=== PATIENT | male | born 1960 | race Caucasian/White ===

== ENCOUNTER 2024-05-13 17:08 | Inpatient (IN) | payer MEDICAID ==
[~2024-05-13] VITALS: Ht 180.3 cm; Wt 81.6 kg
[~2024-05-13 17:08] MED LIST: BUPR-565 PO; QUET300T2 PO
[2024-05-14] MEDS ORDERED: LORazepam 2 MG TABLET PO PRN (10:15)
[2024-05-14] MEDS ORDERED: ZOLPIDEM TARTRATE 10 MG TABLET PO PRN (10:15)
[2024-05-14] MEDS ORDERED: HALOPERIDOL 5 MG TABLET PO PRN (10:15)
[2024-05-14] MEDS ORDERED: GuaiFENesin SR 600 MG ER TABLET PO SCH (14:45)
[2024-05-14] MEDS ORDERED: BENZONATATE 100 MG CAPSULE PO SCH (14:45)
[2024-05-14] MEDS ORDERED: CARBIDOPA/LEVODOPA 25-100 MG TABLET PO SCH (16:00)
[2024-05-14] MEDS: PREGABALIN 75 MG CAPSULE PO SCH (16:33)
[2024-05-14] MEDS ORDERED: IPRATROPIUM BROMIDE 0.5 MG/2.5 ML NEB SOLUTION NEB SCH (20:00)
[2024-05-15] MEDS ORDERED: PANTOPRAZOLE SODIUM 40 MG DR TABLET PO SCH (09:00)
[2024-05-15] MEDS ORDERED: PredniSONE 20 MG TABLET PO SCH (09:00)
[2024-05-21] MEDS ORDERED: PredniSONE 20 MG TABLET PO SCH (09:00)
== END 2024-05-14 16:35 | disposition left against medical advice (07) | DRG 750 ==
LOC: UNDOADMIN 05-14 16:06 → 3EI 05-14 16:06
PROVIDERS: ADMIT Psychiatry & Neurology Child & Adolescent Psychiatry; ATTEND Psychiatry & Neurology Child & Adolescent Psychiatry
DX: F25.1 Schizoaffective disorder, depressive type (principal); Z20.822 Contact with and (suspected) exposure to COVID-19; Z53.29 Procedure and treatment not carried out because of patient's decision for other reasons
CPT/HCPCS: Z7610

== ENCOUNTER 2024-05-24 15:53 | Emergency (ER) | payer MEDICAID, OTHER ==
[~2024-05-24] VITALS: Ht 180.3 cm; Wt 70.0 kg
[2024-05-24 16:12] VITALS: TEMP 97.9
[2024-05-24] MEDS: MethylPREDNISolone SOD SUCC 125 MG/2 ML VIAL IVP ONE (16:21)
[2024-05-24 17:15] VITALS: PULSE 75; RESP 18; O2SAT 95; O2SAT 96
[2024-05-24] MEDS: IPRATROPIUM BROMIDE 0.5 MG/2.5 ML NEB SOLUTION NEB ONE (17:23)
[2024-05-24] MEDS: ALBUTEROL SULFATE 2.5 MG/0.5 ML 5 ML NEB SOLUTION NEB ONE (17:23)
[2024-05-24 17:37] LABS: BASOPHILS % (AUTO) 0.7 % (0.0-2.0); EOSINOPHILS % (AUTO) 5.8 % (1.0-6.0); HEMATOCRIT 39.8 % (41-53); LYMPHOCYTES # (AUTO) 1.6 K/uL (1.0-4.8); LYMPHOCYTES % (AUTO) 22.5 % (22.0-44.0); MEAN CORPUSCULAR HEMOGLOBIN 27.9 pg (26.0-34.0); MEAN CORPUSCULAR HGB CONC 32.7 G/dL (31.0-37.0); MEAN CORPUSCULAR VOLUME 85 fL (80-100); MONOCYTES # (AUTO) 1.2 K/uL (0.1-1.0); MONOCYTES % (AUTO) 16.3 % (2.0-9.0); NEUTROPHILS % (AUTO) 54.7 % (40.0-70.0); PLATELET COUNT (AUTO) 174 K/uL (150-450); RED BLOOD CELL COUNT(AUTO) 4.66 MIL/uL (4.50-5.90); RED CELL DISTRIBUTION WIDTH 16.5 % (11.5-14.5); WHITE BLOOD COUNT (AUTO) 7.3 K/uL (4.5-11.0)
[2024-05-24 17:40] VITALS: BP 121/60; PULSE 80; RESP 24
[2024-05-24 17:42] LABS: ANION GAP 7 mmol/L (8-16); CALCIUM, TOTAL 8.8 mg/dL (8.8-10.5); CARBON DIOXIDE 27 mmol/L (22-29); CHLORIDE 103 mmol/L (98-107); CREATININE 0.86 mg/dL (0.60-1.30); GLOMERULAR FILTR. RATE CALC > 60 mL/min (>60); GLUCOSE,RANDOM 81 mg/dL (70-110); POTASSIUM 3.4 mmol/L (3.5-5.1); SODIUM SERUM 137 mmol/L (136-145); UREA NITROGEN, BLOOD 8 mg/dL (7-18)
[2024-05-24 17:49] LABS: B-TYPE NATRIURETIC PEPTIDE 19 pg/mL (0-100)
[2024-05-24 17:51] LABS: TROPONIN I-HIGH SENSITIVITY 24 ng/L (<76)
[2024-05-24] MEDS: MAG HYDROX/ALUMINUM HYD/SIMETH ES 30 ML SUSPENSION UDCUP PO ONE (18:50)
[2024-05-24] MEDS: OMEPRAZOLE 20 MG CAPSULE PO ONE (18:50)
[2024-05-24] MEDS ORDERED: PRED-554 PO (18:55)
[2024-05-24] MEDS ORDERED: OMEP20 PO (18:55)
== END 2024-05-24 20:30 | disposition home or self-care (01) ==
LOC: EMS 15:54
DX: J44.9 Chronic obstructive pulmonary disease, unspecified (principal); K21.9 Gastro-esophageal reflux disease without esophagitis; F31.9 Bipolar disorder, unspecified; I10 Essential (primary) hypertension; F20.9 Schizophrenia, unspecified; F17.210 Nicotine dependence, cigarettes, uncomplicated; F12.90 Cannabis use, unspecified, uncomplicated; Z90.49 Acquired absence of other specified parts of digestive tract; Z98.890 Other specified postprocedural states; Z88.8 Allergy status to other drugs, medicaments and biological substances
CPT/HCPCS: 99285; 96374; 71045; 80048; 83880; 84484; 85025; 36415; 94644; 93005; J2919; Q9967; 94640

== ENCOUNTER 2024-05-27 19:32 | Emergency (ER) | payer OTHER ==
[~2024-05-27] VITALS: Ht 175.3 cm; Wt 90.0 kg
[2024-05-27 19:15] VITALS: PULSE 94; RESP 20; O2SAT 99
[~2024-05-27 19:32] MED LIST changes: -BUPR-565 PO; +OMEP20 PO; +PRED-554 PO; -QUET300T2 PO
[2024-05-27 19:35] VITALS: TEMP 98.4
[2024-05-27] MEDS: ALBUTEROL SULFATE 2.5 MG/0.5 ML NEB SOLUTION NEB ONE (19:57)
[2024-05-27] MEDS: IPRATROPIUM BROMIDE 0.5 MG/2.5 ML NEB SOLUTION NEB ONE (19:57)
[2024-05-27 19:58] VITALS: PULSE 93; RESP 22; O2SAT 96
[2024-05-27 19:59] VITALS: PULSE 93; RESP 22; O2SAT 96
[2024-05-27] MEDS: MethylPREDNISolone SOD SUCC 125 MG/2 ML VIAL IVP ONE (20:53)
[2024-05-27 20:55] LABS: BASOPHILS % (AUTO) 0.8 % (0.0-2.0); EOSINOPHILS % (AUTO) 5.6 % (1.0-6.0); HEMATOCRIT 38.7 % (41-53); HEMOGLOBIN 12.8 g/dL (13.5-17.5); LYMPHOCYTES # (AUTO) 1.7 K/uL (1.0-4.8); MEAN CORPUSCULAR HEMOGLOBIN 28.4 pg (26.0-34.0); MEAN CORPUSCULAR HGB CONC 33.1 G/dL (31.0-37.0); MEAN CORPUSCULAR VOLUME 86 fL (80-100); MONOCYTES % (AUTO) 15.2 % (2.0-9.0); NEUTROPHILS # (AUTO) 3.3 K/uL (1.8-7.7); NEUTROPHILS % (AUTO) 51.4 % (40.0-70.0); PLATELET COUNT (AUTO) 162 K/uL (150-450); RED BLOOD CELL COUNT(AUTO) 4.51 MIL/uL (4.50-5.90); RED CELL DISTRIBUTION WIDTH 16.9 % (11.5-14.5); WHITE BLOOD COUNT (AUTO) 6.3 K/uL (4.5-11.0)
[2024-05-27 21:04] LABS: ANION GAP 11 mmol/L (8-16); CALCIUM, TOTAL 8.4 mg/dL (8.8-10.5); CARBON DIOXIDE 25 mmol/L (22-29); CHLORIDE 101 mmol/L (98-107); CREATININE 0.79 mg/dL (0.60-1.30); GLOMERULAR FILTR. RATE CALC > 60 mL/min (>60); GLUCOSE,RANDOM 112 mg/dL (70-110); POTASSIUM 3.8 mmol/L (3.5-5.1); SODIUM SERUM 136 mmol/L (136-145); UREA NITROGEN, BLOOD 8 mg/dL (7-18)
[2024-05-27 21:10] LABS: APPEARANCE,URINE CLEAR (CLEAR); BILIRUBIN,URINE NEGATIVE (NEGATIVE); COLOR,URINE COLORLESS (YELLOW); GLUCOSE, URINE (UA) NEGATIVE (NEGATIVE); KETONES,URINE NEGATIVE (NEGATIVE); LEUKOCYTE ESTERASE ,URINE NEGATIVE (NEGATIVE); NITRATE,URINE NEGATIVE (NEGATIVE); OCCULT BLOOD,URINE NEGATIVE (NEGATIVE); PH,URINE 5.5 (5.0-8.0); PROTEIN,URINE NEGATIVE (NEGATIVE); SPECIFIC GRAVITIY, URINE 1.005 (1.003-1.030); UROBILINOGEN,URINE <=1.0 mg/dL (<=1.0)
[2024-05-27 21:12] LABS: ALANINE AMINOTRANSFERASE 27 U/L (12-78); ALBUMIN 2.9 g/dL (3.4-5.0); ALKALINE PHOSPHATASE 99 U/L (46-116); ASPARTATE AMINOTRANSFERASE 21 U/L (15-37); BILIRUBIN,TOTAL 0.2 mg/dL (0.1-1.0); CREATINE KINASE, TOTAL ONLY 35 U/L (39-308); TOTAL PROTEIN, SERUM 6.5 g/dL (6.4-8.2)
[2024-05-27 21:13] LABS: B-TYPE NATRIURETIC PEPTIDE 16 pg/mL (0-100); TROPONIN I-HIGH SENSITIVITY 27 ng/L (<76)
[2024-05-27] MEDS: HYDROCODONE/ACETAMINOPHEN 5-325 MG TABLET PO ONE (21:21)
[2024-05-27] MEDS: AZITHROMYCIN 500 MG/NS 250 ML IV ONE (21:53)
[2024-05-27] MEDS: CefTRIAXone 1 GM/DEXTROSE 50 ML IV ONE (21:55)
[2024-05-27 22:27] LABS: LACTIC ACID 1.6 mmol/L (0.4-2.0)
[2024-05-27] MEDS ORDERED: ALBU18HF12 IH (22:38)
[2024-05-27] MEDS ORDERED: AZIT250T9 PO (22:38)
[2024-05-27] MEDS ORDERED: PRED-554 PO (22:38)
[2024-05-27 23:27] VITALS: BP 117/81; PULSE 88; RESP 15
== END 2024-05-27 23:54 | disposition home or self-care (01) ==
LOC: EMS 19:32
DX: J44.1 Chronic obstructive pulmonary disease with (acute) exacerbation (principal); J18.9 Pneumonia, unspecified organism; R06.02 Shortness of breath; I10 Essential (primary) hypertension; Z88.8 Allergy status to other drugs, medicaments and biological substances
CPT/HCPCS: 99285; 96365; 71045; 96375; 80053; 81003; 82550; 83605; 84484; 85025; 85379; 87040; 94640; 93005; 96368; 36415; J0456; J0696; J2919; J7613

== ENCOUNTER 2024-06-09 14:36 | Emergency (ER) | payer OTHER ==
[~2024-06-09] VITALS: Ht 180.3 cm; Wt 70.0 kg
[~2024-06-09 14:36] MED LIST changes: +ALBU18HF12 IH
[2024-06-09 14:54] VITALS: BP 105/43; TEMP 98.1
[2024-06-09 14:55] VITALS: PULSE 83; RESP 20; O2SAT 92
[2024-06-09] MEDS ORDERED: PROP10TA72 PO (14:58)
[2024-06-09] MEDS ORDERED: BUDE10.22 IH (14:58)
[2024-06-09] MEDS ORDERED: OMEP20CA12 PO (14:58)
[2024-06-09] MEDS ORDERED: GABA-1181 PO (14:58)
[2024-06-09] MEDS ORDERED: DOCU-412 PO (14:58)
[2024-06-09] MEDS ORDERED: PALI156D IM (14:58)
[2024-06-09 15:10] VITALS: PULSE 86; RESP 20; O2SAT 96
[2024-06-09] MEDS: ALBUTEROL SULFATE 2.5 MG/0.5 ML NEB SOLUTION NEB ONE (15:24)
[2024-06-09] MEDS: IPRATROPIUM BROMIDE 0.5 MG/2.5 ML NEB SOLUTION NEB ONE (15:25)
[2024-06-09] MEDS: KETOROLAC TROMETHAMINE 30 MG/ML VIAL IVP ONE (15:37)
[2024-06-09] MEDS: MethylPREDNISolone SOD SUCC 125 MG/2 ML VIAL IVP ONE (15:37)
[2024-06-09] MEDS: ACETAMINOPHEN 500 MG TABLET PO ONE (15:38)
[2024-06-09 15:43] LABS: BASOPHILS % (AUTO) 1.2 % (0.0-2.0); EOSINOPHILS % (AUTO) 6.1 % (1.0-6.0); HEMATOCRIT 39.7 % (41-53); HEMOGLOBIN 13.1 g/dL (13.5-17.5); LYMPHOCYTES # (AUTO) 1.9 K/uL (1.0-4.8); LYMPHOCYTES % (AUTO) 26.6 % (22.0-44.0); MEAN CORPUSCULAR HEMOGLOBIN 28.3 pg (26.0-34.0); MEAN CORPUSCULAR HGB CONC 32.9 G/dL (31.0-37.0); MEAN CORPUSCULAR VOLUME 86 fL (80-100); MONOCYTES # (AUTO) 1.2 K/uL (0.1-1.0); MONOCYTES % (AUTO) 16.5 % (2.0-9.0); NEUTROPHILS # (AUTO) 3.5 K/uL (1.8-7.7); NEUTROPHILS % (AUTO) 49.6 % (40.0-70.0); PLATELET COUNT (AUTO) 229 K/uL (150-450); RED BLOOD CELL COUNT(AUTO) 4.62 MIL/uL (4.50-5.90); RED CELL DISTRIBUTION WIDTH 17.1 % (11.5-14.5); WHITE BLOOD COUNT (AUTO) 7.1 K/uL (4.5-11.0)
[2024-06-09 15:51] LABS: ANION GAP 9 mmol/L (8-16); CALCIUM, TOTAL 8.6 mg/dL (8.8-10.5); CARBON DIOXIDE 27 mmol/L (22-29); CHLORIDE 102 mmol/L (98-107); CREATININE 0.97 mg/dL (0.60-1.30); GLOMERULAR FILTR. RATE CALC > 60 mL/min (>60); GLUCOSE,RANDOM 72 mg/dL (70-110); POTASSIUM 3.8 mmol/L (3.5-5.1); SODIUM SERUM 138 mmol/L (136-145); UREA NITROGEN, BLOOD 7 mg/dL (7-18)
[2024-06-09 15:55] LABS: ALANINE AMINOTRANSFERASE 22 U/L (12-78); ALBUMIN 3.2 g/dL (3.4-5.0); ALKALINE PHOSPHATASE 95 U/L (46-116); ASPARTATE AMINOTRANSFERASE 15 U/L (15-37); BILIRUBIN,TOTAL 0.4 mg/dL (0.1-1.0); CREATINE KINASE, TOTAL ONLY 29 U/L (39-308)
[2024-06-09 15:56] LABS: COVID AG,FIA SOURCE NASAL SWAB
[2024-06-09 15:57] LABS: TROPONIN I-HIGH SENSITIVITY 30 ng/L (<76)
[2024-06-09 15:59] LABS: B-TYPE NATRIURETIC PEPTIDE 12 pg/mL (0-100)
[2024-06-09 16:22] LABS: INFLUENZA TYPE A NEGATIVE FOR TYPE A (NEGATIVE); INFLUENZA TYPE B NEGATIVE FOR TYPE B (NEGATIVE)
[2024-06-09 16:24] LABS: SARS-COV2 (COVID) ANTIGEN,FIA Negative (Negative)
[2024-06-09 16:55] LABS: APPEARANCE,URINE CLEAR (CLEAR); BILIRUBIN,URINE NEGATIVE (NEGATIVE); COLOR,URINE COLORLESS (YELLOW); GLUCOSE, URINE (UA) NEGATIVE (NEGATIVE); KETONES,URINE NEGATIVE (NEGATIVE); LEUKOCYTE ESTERASE ,URINE NEGATIVE (NEGATIVE); NITRATE,URINE NEGATIVE (NEGATIVE); OCCULT BLOOD,URINE NEGATIVE (NEGATIVE); PROTEIN,URINE NEGATIVE (NEGATIVE); SPECIFIC GRAVITIY, URINE 1.005 (1.003-1.030); UROBILINOGEN,URINE <=1.0 mg/dL (<=1.0)
[2024-06-09] MEDS ORDERED: PRED-554 PO (17:05)
== END 2024-06-09 17:39 | disposition home or self-care (01) ==
LOC: EMS 14:37
DX: J44.1 Chronic obstructive pulmonary disease with (acute) exacerbation (principal); R05.9 Cough, unspecified; R06.02 Shortness of breath; I10 Essential (primary) hypertension; F17.210 Nicotine dependence, cigarettes, uncomplicated; F12.90 Cannabis use, unspecified, uncomplicated; Z88.8 Allergy status to other drugs, medicaments and biological substances; Z20.822 Contact with and (suspected) exposure to COVID-19
CPT/HCPCS: 99285; 96374; 71045; 96375; 87426; 80053; 81003; 82550; 83880; 84484; 85025; 87804; 36415; 94640; 93005; J1885; J2919; J7613

== ENCOUNTER 2024-06-16 12:27 | Inpatient (IN) | payer MEDICAID, OTHER ==
[~2024-06-16] VITALS: Ht 180.3 cm; Wt 73.9 kg
[~2024-06-16 12:27] MED LIST changes: +BUDE10.22 IH; +DOCU-412 PO; +GABA-1181 PO; +PALI156D IM; +PROP10TA72 PO
[2024-06-16] MEDS: ZIPRASIDONE MESYLATE 20 MG/VIAL IM ONE (13:24)
[2024-06-16] MEDS: LORazepam 2 MG/ML VIAL IM ONE (13:24)
[2024-06-16] MEDS: DiphenhydrAMINE HCL 50 MG/ML VIAL IM ONE (13:24)
[2024-06-16 14:00] LABS: BASOPHILS % (AUTO) 0.2 % (0.0-2.0); EOSINOPHILS % (AUTO) 0 % (1.0-6.0); HEMATOCRIT 37.2 % (41-53); HEMOGLOBIN 12.3 g/dL (13.5-17.5); LYMPHOCYTES # (AUTO) 1.6 K/uL (1.0-4.8); LYMPHOCYTES % (AUTO) 21.8 % (22.0-44.0); MEAN CORPUSCULAR HEMOGLOBIN 28.1 pg (26.0-34.0); MEAN CORPUSCULAR VOLUME 85 fL (80-100); MONOCYTES # (AUTO) 0.9 K/uL (0.1-1.0); MONOCYTES % (AUTO) 12.6 % (2.0-9.0); NEUTROPHILS # (AUTO) 4.8 K/uL (1.8-7.7); NEUTROPHILS % (AUTO) 65.4 % (40.0-70.0); PLATELET COUNT (AUTO) 230 K/uL (150-450); RED BLOOD CELL COUNT(AUTO) 4.36 MIL/uL (4.50-5.90); RED CELL DISTRIBUTION WIDTH 17.2 % (11.5-14.5); WHITE BLOOD COUNT (AUTO) 7.3 K/uL (4.5-11.0)
[2024-06-16 14:10] LABS: APPEARANCE,URINE CLEAR (CLEAR); BILIRUBIN,URINE NEGATIVE (NEGATIVE); COLOR,URINE COLORLESS (YELLOW); GLUCOSE, URINE (UA) NEGATIVE (NEGATIVE); KETONES,URINE NEGATIVE (NEGATIVE); LEUKOCYTE ESTERASE ,URINE NEGATIVE (NEGATIVE); NITRATE,URINE NEGATIVE (NEGATIVE); OCCULT BLOOD,URINE NEGATIVE (NEGATIVE); PH,URINE 5.5 (5.0-8.0); PROTEIN,URINE NEGATIVE (NEGATIVE); SPECIFIC GRAVITIY, URINE 1.006 (1.003-1.030); UROBILINOGEN,URINE <=1.0 mg/dL (<=1.0)
[2024-06-16 14:10] LABS: ALCOHOL, BLOOD (SERUM) 193 mg/dL (0-10)
[2024-06-16 14:13] LABS: ANION GAP 10 mmol/L (8-16); CALCIUM, TOTAL 8.2 mg/dL (8.8-10.5); CARBON DIOXIDE 28 mmol/L (22-29); CHLORIDE 98 mmol/L (98-107); CREATININE 0.78 mg/dL (0.60-1.30); GLOMERULAR FILTR. RATE CALC > 60 mL/min (>60); GLUCOSE,RANDOM 90 mg/dL (70-110); POTASSIUM 3.7 mmol/L (3.5-5.1); SODIUM SERUM 136 mmol/L (136-145); UREA NITROGEN, BLOOD 11 mg/dL (7-18)
[2024-06-16 14:16] LABS: ALCOHOL, URINE DRUG SCREEN POSITIVE (NEGATIVE); AMPHET/METH SCREEN,URINE NEGATIVE (NEGATIVE); BARBITURATE SCREEN, URINE NEGATIVE (NEGATIVE); BENZODIAZEPINES SCREEN,URINE NEGATIVE (NEGATIVE); CANNABINOID SCREEN,URINE NEGATIVE (NEGATIVE); COCAINE SCREEN,URINE NEGATIVE (NEGATIVE); METHADONE SCREEN, URINE NEGATIVE (NEGATIVE); OPIATE SCREEN,URINE NEGATIVE (NEGATIVE); PHENCYCLIDINE SCREEN,URINE NEGATIVE (NEGATIVE)
[2024-06-16 14:17] LABS: PH,URINE DRUG SCREEN 5.5 (5.0-8.0)
[2024-06-16 14:19] LABS: ALANINE AMINOTRANSFERASE 26 U/L (12-78); ALKALINE PHOSPHATASE 91 U/L (46-116); ASPARTATE AMINOTRANSFERASE 20 U/L (15-37); BILIRUBIN,TOTAL 0.4 mg/dL (0.1-1.0); TOTAL PROTEIN, SERUM 6.5 g/dL (6.4-8.2)
[2024-06-16 16:39] LABS: COVID AG,FIA SOURCE NASAL SWAB
[2024-06-16 17:02] LABS: SARS-COV2 (COVID) ANTIGEN,FIA Negative (Negative)
[2024-06-16] MEDS: IPRATROPIUM BROMIDE 0.5 MG/2.5 ML NEB SOLUTION NEB ONE (18:27)
[2024-06-16] MEDS: ALBUTEROL SULFATE 2.5 MG/0.5 ML NEB SOLUTION NEB ONE (18:27)
[2024-06-16 18:33] VITALS: PULSE 88; RESP 18; O2SAT 96
[2024-06-16 18:34] VITALS: PULSE 88; RESP 18; O2SAT 96
[2024-06-17 04:59] VITALS: BP 153/78; PULSE 100; RESP 20; TEMP 97.6; O2SAT 92
[2024-06-17] MEDS ORDERED: BENZOCAINE/MENTHOL LOZENGE PO PRN (07:00)
[2024-06-17] MEDS ORDERED: PETROLATUM,WHITE 28 GM JELLY TP PRN (07:00)
[2024-06-17] MEDS ORDERED: ONDANSETRON HCL 4 MG TABLET PO PRN (07:00)
[2024-06-17] MEDS ORDERED: MAGNESIUM HYDROXIDE SUSPENSION 30 ML UDCUP PO PRN (07:00)
[2024-06-17] MEDS ORDERED: OMEPRAZOLE 20 MG CAPSULE PO PRN (07:00)
[2024-06-17] MEDS ORDERED: DOCUSATE SODIUM 100 MG CAPSULE PO PRN (07:00)
[2024-06-17] MEDS ORDERED: ACETAMINOPHEN 325 MG TABLET PO PRN (07:00)
[2024-06-17] MEDS ORDERED: CloNIDine HCL 0.1 MG TABLET PO PRN (07:00)
[2024-06-17] MEDS ORDERED: IBUPROFEN 600 MG TABLET PO PRN (07:00)
[2024-06-17] MEDS ORDERED: BACITRACIN 28 GM OINTMENT TP PRN (07:00)
[2024-06-17] MEDS ORDERED: MAG HYDROX/ALUMINUM HYD/SIMETH ES 30 ML SUSPENSION UDCUP PO PRN (07:00)
[2024-06-17] MEDS ORDERED: LOPERAMIDE HCL 2 MG CAPSULE PO PRN (07:00)
[2024-06-17] MEDS: ALBUTEROL SULFATE HFA 90 MCG/PUFF 8 GM INHALER IH PRN (07:06)
[2024-06-17 08:45] VITALS: BP 128/83; PULSE 107; RESP 16
[2024-06-17] MEDS: PROPRANOLOL HCL 10 MG TABLET PO SCH (08:54)
[2024-06-17] MEDS: BUDESONIDE/FORMOTEROL FUMARATE 80-4.5 MCG/PUFF 10.2 GM INHALER IH SCH (08:54)
[2024-06-17] MEDS: GABAPENTIN 300 MG CAPSULE PO SCH (08:54)
[2024-06-17] MEDS: PALIPERIDONE PALMITATE 234 MG/1.5 ML SYRINGE IM ONE (13:13)
[2024-06-17] MEDS: BuPROPion HCL 150 MG SR TABLET PO SCH (16:26)
[2024-06-17] MEDS: QUEtiapine FUMARATE 300 MG TABLET PO SCH (21:04)
[2024-06-17 21:33] VITALS: BP 108/72; PULSE 84; RESP 18; TEMP 98.7; O2SAT 95
[2024-06-17 21:35] VITALS: BP 108/72; PULSE 84; RESP 18; TEMP 98.7
[2024-06-18] MEDS: OLANZapine 5 MG RAPDIS TABLET PO PRN (08:17)
[2024-06-18] MEDS: LORazepam 2 MG TABLET PO PRN (08:17)
[2024-06-18 12:45] VITALS: BP 142/92; PULSE 88; RESP 18; TEMP 99
[2024-06-18 21:01] VITALS: RESP 18
[2024-06-19 20:45] VITALS: RESP 18
[2024-06-20] MEDS: ZOLPIDEM TARTRATE 10 MG TABLET PO PRN (01:18)
[2024-06-20] MEDS: ALBUTEROL SULFATE HFA 90 MCG/PUFF 8 GM INHALER IH PRN (02:40)
[2024-06-20 08:10] VITALS: BP 129/90; PULSE 3; RESP 18; TEMP 97.9
[2024-06-20 12:30] VITALS: BP 125/78; PULSE 99; RESP 18
[2024-06-20 16:20] VITALS: BP 128/80; PULSE 89; RESP 18
[2024-06-20 21:37] VITALS: BP 118/81; PULSE 93; RESP 18; TEMP 98.1
[2024-06-21 09:05] VITALS: BP 132/81; PULSE 102; RESP 18; TEMP 97.9
[2024-06-22 09:21] VITALS: BP 138/81; PULSE 99; RESP 19; TEMP 97.6
[2024-06-22 20:25] VITALS: RESP 18
[2024-06-23 08:03] VITALS: BP 114/79; PULSE 80; RESP 18; TEMP 98.3
[2024-06-23 12:53] VITALS: BP 102/62; PULSE 80; RESP 16
[2024-06-23 16:47] VITALS: BP 136/82; PULSE 89; RESP 18
[2024-06-23 20:53] VITALS: BP 135/74; PULSE 82; RESP 18; TEMP 98.2
[2024-06-24 08:05] VITALS: BP 128/56; PULSE 84; RESP 16; TEMP 97.5
[2024-06-24 13:00] VITALS: BP 102/60; PULSE 68; RESP 16
[2024-06-24 16:16] VITALS: BP 136/83; PULSE 85; RESP 18
[2024-06-25 09:16] VITALS: BP 130/89; PULSE 92; RESP 17; TEMP 97.6
[2024-06-25 20:05] VITALS: BP 108/71; PULSE 80; RESP 18; TEMP 98.1
[2024-06-26] MEDS: FOLIC ACID 1 MG TABLET PO SCH (08:08)
[2024-06-26] MEDS: MULTIVITAMINS WITH MINERALS, THERAPEUTIC TABLET PO SCH (08:08)
[2024-06-26] MEDS: THIAMINE 100 MG TABLET PO SCH (08:08)
[2024-06-26 11:31] VITALS: BP 128/81; PULSE 91; RESP 17; TEMP 97.8
[2024-06-26 20:42] VITALS: BP 118/76; PULSE 79; RESP 18; TEMP 98
[2024-06-27 08:17] VITALS: BP 124/79; PULSE 78; RESP 18; TEMP 97.5
[2024-06-27 13:00] VITALS: BP 122/78; PULSE 99; RESP 18
[2024-06-27 16:37] VITALS: BP 129/78; PULSE 88; RESP 20
[2024-06-27 20:48] VITALS: BP 103/71; PULSE 78; RESP 18; TEMP 98.7
[2024-06-28 10:46] VITALS: BP 117/82; PULSE 86; RESP 17; TEMP 98
[2024-06-28 20:13] VITALS: BP 139/72; PULSE 76; RESP 17; TEMP 97.2
[2024-06-29 08:30] VITALS: BP 122/70; PULSE 102; RESP 18; TEMP 97.7
[2024-06-29 21:12] VITALS: BP 117/79; PULSE 74; RESP 18; TEMP 98.9
[2024-06-30 12:45] VITALS: BP 136/78; PULSE 100; RESP 18
[2024-06-30 16:45] VITALS: BP 127/80; PULSE 73; RESP 18
[2024-06-30 20:45] VITALS: BP 117/70; PULSE 75; RESP 18; TEMP 98.3
[2024-07-01 15:37] VITALS: BP 126/77; PULSE 87; RESP 18; TEMP 98.3
[2024-07-01 21:32] VITALS: BP 124/72; PULSE 81; RESP 18; TEMP 97.9
[2024-07-02 09:00] VITALS: BP 119/65; PULSE 87; RESP 16; TEMP 97.8
[2024-07-02] MEDS ORDERED: FOLI-130 PO ×2 (14:31→14:36)
[2024-07-02] MEDS ORDERED: QUET300T19 PO ×2 (14:31→14:36)
[2024-07-02] MEDS ORDERED: PALI234D IM ×2 (14:31→14:36)
[2024-07-02] MEDS ORDERED: THIA100T80 PO ×2 (14:31→14:36)
[2024-07-02] MEDS ORDERED: PROP10TA72 PO ×2 (14:31→14:36)
[2024-07-02] MEDS ORDERED: BUPR-433 PO ×2 (14:31→14:36)
[2024-07-02] MEDS ORDERED: BUDE10.27 IH ×2 (14:31→14:36)
[2024-07-02] MEDS ORDERED: GABA-1181 PO ×2 (14:31→14:36)
[2024-07-15] MEDS ORDERED: PALIPERIDONE PALMITATE 234 MG/1.5 ML SYRINGE IM SCH (09:00)
== END 2024-07-02 15:30 | disposition home or self-care (01) | DRG 750 ==
LOC: EMS 12:27 → 3EC 17:10 → 3EI 06-25 20:25
PROVIDERS: ADMIT Psychiatry & Neurology Child & Adolescent Psychiatry; ATTEND Psychiatry & Neurology Child & Adolescent Psychiatry
PROC: GZHZZZZ Group Psychotherapy (ICD-10-PCS; principal; 2024-06-17)
PROC: GZ52ZZZ Individual Psychotherapy, Cognitive (ICD-10-PCS; 2024-06-17)
DX: F25.1 Schizoaffective disorder, depressive type (principal); R45.851 Suicidal ideations; B18.2 Chronic viral hepatitis C; G89.29 Other chronic pain; I10 Essential (primary) hypertension; I25.10 Atherosclerotic heart disease of native coronary artery without angina pectoris; J44.9 Chronic obstructive pulmonary disease, unspecified; K21.9 Gastro-esophageal reflux disease without esophagitis; Z20.822 Contact with and (suspected) exposure to COVID-19; Z60.8 Other problems related to social environment; F15.10 Other stimulant abuse, uncomplicated; F10.129 Alcohol abuse with intoxication, unspecified; Y90.9 Presence of alcohol in blood, level not specified; F17.210 Nicotine dependence, cigarettes, uncomplicated; Z79.899 Other long term (current) drug therapy; Z88.8 Allergy status to other drugs, medicaments and biological substances; I25.2 Old myocardial infarction; Z90.49 Acquired absence of other specified parts of digestive tract
CPT/HCPCS: 80053; 80307; 81003; 85025; 87081; 94640; 99285; G0480; J1200; J2060; J3486; J3535

== ENCOUNTER 2024-08-03 21:13 | Inpatient (IN) | payer MEDICAID, OTHER ==
[2024-08-02 04:05] VITALS: PULSE 85; RESP 22; O2SAT 94
[~2024-08-03] VITALS: Ht 177.8 cm; Wt 80.6 kg
[~2024-08-03 21:13] MED LIST changes: -ALBU18HF12 IH; -BUDE10.22 IH; +BUDE10.27 IH; +BUPR-433 PO; -DOCU-412 PO; +FOLI-130 PO; -OMEP20 PO; -PALI156D IM; +PALI234D IM; -PRED-554 PO; +QUET300T19 PO; +THIA100T80 PO
[2024-08-03 21:59] LABS: BASOPHILS % (AUTO) 0.3 % (0.0-2.0); EOSINOPHILS % (AUTO) 0.9 % (1.0-6.0); HEMATOCRIT 38.7 % (41-53); HEMOGLOBIN 12.6 g/dL (13.5-17.5); LYMPHOCYTES # (AUTO) 2.4 K/uL (1.0-4.8); LYMPHOCYTES % (AUTO) 29.1 % (22.0-44.0); MEAN CORPUSCULAR HEMOGLOBIN 28.2 pg (26.0-34.0); MEAN CORPUSCULAR HGB CONC 32.6 G/dL (31.0-37.0); MEAN CORPUSCULAR VOLUME 87 fL (80-100); MONOCYTES # (AUTO) 1.3 K/uL (0.1-1.0); MONOCYTES % (AUTO) 15.3 % (2.0-9.0); NEUTROPHILS # (AUTO) 4.5 K/uL (1.8-7.7); NEUTROPHILS % (AUTO) 54.4 % (40.0-70.0); PLATELET COUNT (AUTO) 198 K/uL (150-450); RED BLOOD CELL COUNT(AUTO) 4.47 MIL/uL (4.50-5.90); RED CELL DISTRIBUTION WIDTH 16.7 % (11.5-14.5); WHITE BLOOD COUNT (AUTO) 8.2 K/uL (4.5-11.0)
[2024-08-03 22:10] LABS: ANION GAP 10 mmol/L (8-16); CALCIUM, TOTAL 7.7 mg/dL (8.8-10.5); CARBON DIOXIDE 24 mmol/L (22-29); CHLORIDE 103 mmol/L (98-107); CREATININE 1.01 mg/dL (0.60-1.30); GLOMERULAR FILTR. RATE CALC > 60 mL/min (>60); GLUCOSE,RANDOM 93 mg/dL (70-110); POTASSIUM 3.5 mmol/L (3.5-5.1); SODIUM SERUM 137 mmol/L (136-145); UREA NITROGEN, BLOOD 18 mg/dL (7-18)
[2024-08-03 22:13] LABS: ALCOHOL, BLOOD (SERUM) 173 mg/dL (0-10)
[2024-08-03 22:50] LABS: COVID AG,FIA SOURCE NASAL SWAB
[2024-08-03 22:59] LABS: ABG BASE EXCESS -0.9 mmol/L (-2.0-3.0); ABG CARBOXYHEMOGLOBIN 0.4 % (0.5-1.5); ABG HCO3 23.3 mmol/L (21.0-28.0); ABG METHEMOGLOBIN 0.8 % (0.0-1.5); ABG OXYGEN CONTENT 16.9 mL/dL (15.0-23.0); ABG OXYGEN SATURATION 93.8 % (94.0-98.0); ABG OXYHEMOGLOBIN 92.7 % (94.0-98.0); ABG PCO2 47 mmHg (35.0-48.0); ABG PH 7.338 (7.350-7.450); ABG TOTAL HEMOGLOBIN 12.9 G/dL (13.5-17.5); PO2, ARTERIAL BG 75.3 mmHg (83.0-108.0); SOURCE, BLOOD GAS ARTERIAL; TEMPERATURE, FAHRENHEIT, BG 98.6 FAHREN (96.0-98.6)
[2024-08-03 23:02] LABS: ALLEN TEST, BLOOD GAS Positive; O2 DEVICE,BLOOD GAS NC (ROOM AIR); SITE, BLOOD GAS LFT RADIAL
[2024-08-03 23:10] LABS: TROPONIN I-HIGH SENSITIVITY 32 ng/L (<76)
[2024-08-03 23:15] LABS: SARS-COV2 (COVID) ANTIGEN,FIA Negative (Negative)
[2024-08-03 23:18] LABS: INFLUENZA TYPE A NEGATIVE FOR TYPE A (NEGATIVE); INFLUENZA TYPE B NEGATIVE FOR TYPE B (NEGATIVE)
[2024-08-04] VITALS (13 sets, daily range): BP systolic 100–151; BP diastolic 64–102; PULSE 64–93; RESP 18–20; TEMP 97.4–98; O2SAT 92–100
[2024-08-04] MEDS ORDERED: IPRATROPIUM BROMIDE 0.5 MG/2.5 ML NEB SOLUTION NEB ONE (01:15)
[2024-08-04] MEDS ORDERED: ALBUTEROL SULFATE 2.5 MG/0.5 ML NEB SOLUTION NEB ONE (01:15)
[2024-08-04] MEDS ORDERED: ONDANSETRON HCL 4 MG/2 ML VIAL IVP PRN (01:30)
[2024-08-04] MEDS ORDERED: ACETAMINOPHEN 325 MG TABLET PO PRN (01:30)
[2024-08-04] MEDS ORDERED: IPRATROPIUM BROMIDE 0.5 MG/2.5 ML NEB SOLUTION NEB PRN (01:30)
[2024-08-04] MEDS ORDERED: BISACODYL 10 MG RECTAL RECTAL SUPPOSITORY PR PRN (01:30)
[2024-08-04] MEDS ORDERED: MAGNESIUM HYDROXIDE SUSPENSION 30 ML UDCUP PO PRN (01:30)
[2024-08-04] MEDS ORDERED: ALBUTEROL SULFATE 2.5 MG/0.5 ML NEB SOLUTION NEB PRN (01:30)
[2024-08-04] MEDS: MethylPREDNISolone SOD SUCC 125 MG/2 ML VIAL IVP ONE (02:29)
[2024-08-04] MEDS: AZITHROMYCIN 500 MG/NS 250 ML IV ONE (02:30)
[2024-08-04] MEDS: OXYGEN THERAPY IH SCH (02:30)
[2024-08-04] MEDS: MORPHINE SULFATE 2 MG/ML SYRINGE IVP PRN (03:38)
[2024-08-04] MEDS: ALBUTEROL SULFATE 2.5 MG/0.5 ML NEB SOLUTION NEB SCH (04:08)
[2024-08-04] MEDS: IPRATROPIUM BROMIDE 0.5 MG/2.5 ML NEB SOLUTION NEB SCH (04:09)
[2024-08-04 04:37] LABS: ALCOHOL, URINE DRUG SCREEN POSITIVE (NEGATIVE); AMPHET/METH SCREEN,URINE NEGATIVE (NEGATIVE); BARBITURATE SCREEN, URINE NEGATIVE (NEGATIVE); BENZODIAZEPINES SCREEN,URINE POSITIVE (NEGATIVE); CANNABINOID SCREEN,URINE NEGATIVE (NEGATIVE); COCAINE SCREEN,URINE NEGATIVE (NEGATIVE); METHADONE SCREEN, URINE NEGATIVE (NEGATIVE); OPIATE SCREEN,URINE NEGATIVE (NEGATIVE); PHENCYCLIDINE SCREEN,URINE NEGATIVE (NEGATIVE)
[2024-08-04] MEDS: PNEUMOCOCCAL VACCINE POLYVALENT 0.5 ML SYRINGE [PPSV23] IM. ONE (04:45)
[2024-08-04] MEDS: MethylPREDNISolone SOD SUCC 125 MG/2 ML VIAL IVP SCH (07:12)
[2024-08-04] MEDS: DOCUSATE SODIUM 100 MG CAPSULE PO SCH (08:48)
[2024-08-04] MEDS: PROPRANOLOL HCL 10 MG TABLET PO SCH (08:48)
[2024-08-04] MEDS: FOLIC ACID 1 MG TABLET PO SCH (08:48)
[2024-08-04] MEDS: GABAPENTIN 300 MG CAPSULE PO SCH (08:48)
[2024-08-04] MEDS: BuPROPion HCL 150 MG SR TABLET PO SCH (08:49)
[2024-08-04] MEDS: HEPARIN SODIUM,PORCINE 5,000 UNITS/ML VIAL SQ SCH (08:49)
[2024-08-04] MEDS: THIAMINE 100 MG TABLET PO SCH (08:49)
[2024-08-04] MEDS: PANTOPRAZOLE SODIUM 40 MG DR TABLET PO SCH (08:49)
[2024-08-04] MEDS ORDERED: BuPROPion HCL XL 150 MG ER TABLET PO SCH (09:45)
[2024-08-04] MEDS: OxyCODONE HCL/ACETAMINOPHEN 5-325 MG TABLET PO PRN (12:38)
[2024-08-04] MEDS: QUEtiapine FUMARATE 300 MG TABLET PO SCH (20:39)
[2024-08-04] MEDS ORDERED: QUEtiapine FUMARATE 25 MG TABLET PO SCH (21:00)
[2024-08-05] VITALS (14 sets, daily range): BP systolic 109–147; BP diastolic 63–74; PULSE 53–89; RESP 18–20; TEMP 97.8–98.2; O2SAT 92–99
[2024-08-05] MEDS: ZOLPIDEM TARTRATE 5 MG TABLET PO PRN (22:06)
[2024-08-06] VITALS (8 sets, daily range): BP systolic 131–135; BP diastolic 73–77; PULSE 70–84; RESP 16–18; TEMP 97.7–97.8; O2SAT 92–98
[2024-08-06] MEDS ORDERED: BUPR-433 PO (15:52)
[2024-08-06] MEDS ORDERED: ALBU18HF12 IH (15:52)
[2024-08-06] MEDS ORDERED: BUDE10.27 IH (15:52)
[2024-08-06] MEDS ORDERED: THIA100T80 PO (15:52)
[2024-08-06] MEDS ORDERED: PROP10TA72 PO (15:52)
[2024-08-06] MEDS ORDERED: FOLI-130 PO (15:52)
[2024-08-06] MEDS ORDERED: GABA-1181 PO (15:52)
[2024-08-06] MEDS ORDERED: QUET300T19 PO (15:52)
[2024-08-06] MEDS: PredniSONE 20 MG TABLET PO ONE (15:57)
== END 2024-08-06 16:50 | disposition home or self-care (01) | DRG 140 ==
LOC: EMS 21:13 → EDH 08-04 01:48 → 6S 08-04 03:20
PROVIDERS: ADMIT Hospitalist; ATTEND Hospitalist
PROC: GZ56ZZZ Individual Psychotherapy, Supportive (ICD-10-PCS; principal; 2024-08-04)
DX: J44.1 Chronic obstructive pulmonary disease with (acute) exacerbation (principal); J96.21 Acute and chronic respiratory failure with hypoxia; R45.851 Suicidal ideations; F31.9 Bipolar disorder, unspecified; I10 Essential (primary) hypertension; Z59.00 Homelessness unspecified; Z20.822 Contact with and (suspected) exposure to COVID-19; F10.129 Alcohol abuse with intoxication, unspecified; J20.9 Acute bronchitis, unspecified; J44.0 Chronic obstructive pulmonary disease with (acute) lower respiratory infection; Z87.891 Personal history of nicotine dependence
CPT/HCPCS: 36600; 71045; 80048; 80307; 82805; 84484; 85025; 87804; 93005; 94640; 97116; 97162; 99285; G0480; J0456; J1644; J2270; J2919; 36415-L1; 36415-TC; J7613

== ENCOUNTER 2024-11-05 13:51 | Emergency (ER) | payer OTHER ==
[~2024-11-05] VITALS: Ht 175.3 cm; Wt 68.2 kg
[~2024-11-05 13:51] MED LIST changes: +ALBU18HF12 IH
[2024-11-05 13:54] VITALS: TEMP 98
[2024-11-05] MEDS: FAMOTIDINE 20 MG/2 ML VIAL IVP ONE (15:50)
[2024-11-05] MEDS: SODIUM CHLORIDE 0.9% 1,000 ML IV ONE (15:50)
[2024-11-05] MEDS: ONDANSETRON HCL 4 MG/2 ML VIAL IVP ONE (15:50)
[2024-11-05 15:57] LABS: BASOPHILS % (AUTO) 0.4 % (0.0-2.0); EOSINOPHILS % (AUTO) 0.8 % (1.0-6.0); HEMATOCRIT 41.9 % (41-53); LYMPHOCYTES # (AUTO) 0.7 K/uL (1.0-4.8); MEAN CORPUSCULAR HEMOGLOBIN 28.9 pg (26.0-34.0); MEAN CORPUSCULAR HGB CONC 33.4 G/dL (31.0-37.0); MEAN CORPUSCULAR VOLUME 87 fL (80-100); MONOCYTES # (AUTO) 0.5 K/uL (0.1-1.0); MONOCYTES % (AUTO) 9.8 % (2.0-9.0); NEUTROPHILS # (AUTO) 3.6 K/uL (1.8-7.7); PLATELET COUNT (AUTO) 200 K/uL (150-450); RED BLOOD CELL COUNT(AUTO) 4.84 MIL/uL (4.50-5.90); RED CELL DISTRIBUTION WIDTH 15.6 % (11.5-14.5); WHITE BLOOD COUNT (AUTO) 4.8 K/uL (4.5-11.0)
[2024-11-05 16:06] LABS: ANION GAP 10 mmol/L (8-16); CALCIUM, TOTAL 8.8 mg/dL (8.8-10.5); CARBON DIOXIDE 26 mmol/L (22-29); CHLORIDE 99 mmol/L (98-107); CREATININE 0.96 mg/dL (0.60-1.30); GLOMERULAR FILTR. RATE CALC > 60 mL/min (>60); GLUCOSE,RANDOM 106 mg/dL (70-110); POTASSIUM 3.6 mmol/L (3.5-5.1); SODIUM SERUM 135 mmol/L (136-145); UREA NITROGEN, BLOOD 6 mg/dL (7-18)
[2024-11-05 16:08] LABS: LIPASE 22 U/L (16-77)
[2024-11-05 16:42] LABS: ALANINE AMINOTRANSFERASE 128 U/L (12-78); ALBUMIN 3.5 g/dL (3.4-5.0); ALKALINE PHOSPHATASE 103 U/L (46-116); ASPARTATE AMINOTRANSFERASE 59 U/L (15-37); BILIRUBIN,TOTAL 0.7 mg/dL (0.1-1.0); TOTAL PROTEIN, SERUM 7.4 g/dL (6.4-8.2)
[2024-11-05 16:51] LABS: APPEARANCE,URINE CLEAR (CLEAR); BILIRUBIN,URINE NEGATIVE (NEGATIVE); COLOR,URINE YELLOW (YELLOW); GLUCOSE, URINE (UA) NEGATIVE (NEGATIVE); KETONES,URINE TRACE mg/dL (NEGATIVE); LEUKOCYTE ESTERASE ,URINE NEGATIVE (NEGATIVE); NITRATE,URINE NEGATIVE (NEGATIVE); OCCULT BLOOD,URINE NEGATIVE (NEGATIVE); PH,URINE 6.5 (5.0-8.0); PROTEIN,URINE NEGATIVE (NEGATIVE); SPECIFIC GRAVITIY, URINE 1.017 (1.003-1.030); UROBILINOGEN,URINE <=1.0 mg/dL (<=1.0)
[2024-11-05] MEDS: LORazepam 2 MG TABLET PO ONE (18:01)
[2024-11-05] MEDS: MAG HYDROX/ALUMINUM HYD/SIMETH 30 ML SUSPENSION UDCUP PO ONE (18:01)
[2024-11-05 18:35] LABS: TROPONIN I-HIGH SENSITIVITY 34 ng/L (<76)
[2024-11-05] MEDS ORDERED: ONDA-104 PO (18:44)
[2024-11-05] MEDS ORDERED: FAMO20 PO (18:44)
[2024-11-05] MEDS ORDERED: LORA-1000 PO (18:52)
[2024-11-05 21:18] VITALS: BP 111/69; PULSE 80; RESP 16; O2SAT 96
[2024-11-09] MEDS ORDERED: NALT50TA6 PO (19:54)
[2024-11-09] MEDS ORDERED: QUET300T19 PO (19:54)
[2024-11-09] MEDS ORDERED: BUPR-562 PO (19:54)
[2024-11-09] MEDS ORDERED: DOCU-412 PO (19:54)
== END 2024-11-05 21:31 | disposition home or self-care (01) ==
LOC: EMS 14:01
DX: K21.9 Gastro-esophageal reflux disease without esophagitis (principal); R11.2 Nausea with vomiting, unspecified; F31.9 Bipolar disorder, unspecified; F41.9 Anxiety disorder, unspecified; F20.9 Schizophrenia, unspecified; I10 Essential (primary) hypertension; F12.90 Cannabis use, unspecified, uncomplicated; F17.210 Nicotine dependence, cigarettes, uncomplicated; J44.9 Chronic obstructive pulmonary disease, unspecified; Z79.51 Long term (current) use of inhaled steroids; Z90.49 Acquired absence of other specified parts of digestive tract; Z88.8 Allergy status to other drugs, medicaments and biological substances
CPT/HCPCS: 99284; 96374; 96361; 96375; 80048; 80076; 81003; 83690; 84484; 85025; 36415; J3490; J2405; J7030